=== PATIENT | male | born 2000 | race Two or more races ===

== ENCOUNTER 2020-03-08 13:22 | Emergency (ER) | payer SELFPAY ==
[~2020-03-08] VITALS: Ht 170.2 cm; Wt 67.0 kg
[2020-03-08 13:39] VITALS: BP 134/81
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
== END 2020-03-08 14:30 | disposition short-term general hospital (02) ==
LOC: ER 13:22 → EEVIPCON 13:22 → ER 14:30
DX: T76.21XA Adult sexual abuse, suspected, initial encounter (principal)
CPT/HCPCS: 99285-25